=== PATIENT | female | born 2000 | race Two or more races ===

== ENCOUNTER 2024-12-29 19:28 | Observation (INO) | payer OTHER, SELFPAY ==
[2024-12-29] VITALS (11 sets, daily range): BP systolic 94–120; BP diastolic 51–78; PULSE 65–87; RESP 14–19; TEMP 36.6; O2SAT 98–100; BMI 27.7
--- NOTE | ~2024-12-29 | US_ITS ---
FIRST TRIMESTER ULTRASOUND 12/29/2024 20:30 CDT Ordering provider: Barbara Archer PA-C History: . vaginal bleeding, took pills 6 days ago . Comparison: None. FINDINGS: INTRAUTERINE GESTATIONAL SAC: Not seen. YOLK SAC: Not seen. POLE: Not seen. UTERUS: The uterus measures 9.4x 4x 4.4 cm in length which is within normal limits. No myometrial mas ses. Thickened endometrium measuring 1.9 cm with internal vascularity. Minimal fluid in the cervix. FREE FLUID: None. OVARIES: Normal in size with the right measuring 2.7x 1.7x 2.7 cm and the left measuring 3.6x 1.9x 1. 9 cm. Doppler flow is demonstrated within both ovaries. ADNEXAL MASSES: None. IMPRESSION: Thickened endometrium. No gestational sac seen. Differential include early versus missed ab ortion versus retained products. Follow-up advised. Reviewed, dictated and finalized at location A. IMPRESSION: Thickened endometrium. No gestational sac seen. Differential include early preg karina versus missed versus retained products. Follow-up advised.
[2024-12-29] MEDS: ONDANSETRON INJ 4 MG/2 ML VIAL IV PUSH ×2 (20:06→23:42)
[2024-12-29] MEDS: SODIUM CHLORIDE 0.9% IV 1,000 ML 999 ML IV CONT (20:06)
[2024-12-29 20:08] LABS: Basophils Percent Auto 0.3 % (0.2-1.2); Eosinophils Absolute Auto 0.1 K/mm3 (0-0.3); Eosinophils Percent Auto 0.6 % (0-4.4); Hematocrit 34.1 % (37.0-47.0); Hemoglobin 11.4 g/dL (12.0-15.0); Immature Granulocyte Absolute 0.03 K/mm3 (0.00-0.031); Immature Granulocyte Percent A 0.3 % (0-0.5); Lymphocytes Absolute Auto 1.59 K/mm3 (0.9-3.2); Lymphocytes Percent Auto 13.7 % (18.3-44.2); Mean Corpuscular HGB Conc 33.4 g/dl (32-36); Mean Corpuscular Hemoglobin 28.7 pg (26-34); Mean Corpuscular Volume 85.9 fl (80-100); Mean Platelet Volume 10.4 fl (7.4-10.4); Monocytes Absolute Auto 0.8 K/mm3 (0.1-0.6); Monocytes Percent Auto 6.6 % (2.6-8.5); Neutrophils Absolute Auto 9.1 K/mm3 (1.3-6.7); Neutrophils Percent Auto 78.5 % (45.5-73.1); Platelet Count Result 251 k/mm3 (150-375); Red Blood Count 3.97 M/mm3 (4.2-5.4); Red Cell Distribution Width 11.9 % (11.5-14.5); White Blood Count 11.6 K/mm3 (4.5-10.0)
--- NOTE | 2024-12-29 20:08 | PC.NURSE ---
pt reports they are unable to urinate at this time to provide a urine sample. educated pt to use call light with any urge to provide UA.
[2024-12-29 20:18] LABS: INR 1.1; Prothrombin Time 14.3 Seconds (11.1-14.7)
[2024-12-29 20:19] LABS: Alanine Aminotransferase 13 U/L (6-35); Albumin Level 4.2 g/dL (3.5-5.1); Alkaline Phosphatase 64 U/L (38-126); Anion Gap 11 mmol/L (4-12); Aspartate Amino Transferase 17 U/L (14-36); Bilirubin,Total 0.8 mg/dL (0.2-1.3); Blood Urea Nitrogen 9 mg/dL (7-17); Calcium 9.4 mg/dL (8.4-10.2); Carbon Dioxide 22 mmol/L (22-30); Chloride 102 mmol/L (98-107); Estimated CRCL calculation 159 ml/min; Estimated Glomerular Filt Rate > 60; Glucose 97 mg/dL (65-110); Partial Thromboplastin Time 26.8 Seconds (22.3-36.8); Potassium 3.9 mmol/L (3.4-5.0); Sodium 135 mmol/L (137-145)
[2024-12-29] MEDS: KETOROLAC 15 MG/ML VIAL (*BKC) IV PUSH (20:30)
--- NOTE | 2024-12-29 21:05 | ED_ITS ---
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 Patient's LMP was mid November, she was approximately 6 weeks and 6 days when she went to [facility] on 12/23 and was prescribed pills. She states she took a pill intraorally and then later the day inserted pills intravaginally. She states the following evening she began developing vaginal bleeding requiring 3 pads per day until yesterday. Yesterday her bleeding increased and has caused her to change her pad 5-6x yesterday and 5-6x today. Patient states she has passed large clots. She denies history of bleeding disorders. She is endorsing some lower abdominal cramping that is intermittent. She denies feeling dizzy or lightheaded. She is endorsing associated nausea but no vomiting. Denies fevers, vaginal discharge or concern for STDs. Patient does not have an OBGYN. <Barbara Archer PA-C - Last Filed: 12/30/24 02:40> Related Data Home medications: Home Medications ?Medication ?Instructions ?Recorded ?Confirmed ?Last Taken ?Type No Home Medications 12/29/24 12/29/24 Unknown History <Barbara Archer PA-C - Last Filed: 12/30/24 02:40> Allergies/Adverse reactions: Allergies Allergy/AdvReac Type Severity Reaction Status Date / Time No Known Allergies Allergy Verified 12/29/24 19:30 <HAILEY Garcia Last Filed: 12/30/24 02:40> Review of Systems 2 Review of Systems: All systems reviewed & are unremarkable except as noted in HPI and below <HAILEY Garcia Last Filed: 12/30/24 02:40> PMFSH Past Medical History Medical History: Medical History (Updated 12/30/24 @ 07:48 by Luisana Guevara MD) Medical <Barbara Archer PA-C - Last Filed: 12/30/24 02:40> Social History Social History: Social History Smoking status: Never smoker Alcohol intake: never Substance use: never Substance use type: does not use Do You Feel Safe in your Home?: Yes Lack of Transportation: No Lack of Food: Never True Current Housing: I Have Housing Concerned About Future Housing: No Difficulty Paying Gas/Electric Bills: No Difficulty Paying for Meds: No Currently Unemployed: No Education: High School Diploma/GED Difficulty w/ Childcare or Family Care: No Spiritual care concerns: No <Barbara Archer PA-C - Last Filed: 12/30/24 02:40> Exam 2 Narrative: GENERAL: Well-appearing, well-nourished, and in no acute distress. HEAD: Normocephalic, atraumatic. EYES: EOMI. ENT: Nares clear, no rhinorrhea or epistaxis. Mucous membranes moist. NECK: Supple. CHEST: Clear to auscultation. No respiratory distress. HEART: Regular rate and rhythm. No murmur heard. Normal peripheral pulses. ABDOMEN: Soft, nontender, nondistended, normal active bowel sounds. No rebound, guarding or rigidity. No CVA tenderness : Normal external genitalia. Mild amount of blood in vaginal vault with to quarter-size clots. Cervical os is slightly open with clot in the os that is easily removed with ring forceps. No vaginal discharge, no CMT, adnexal masses or tenderness EXTREMITIES: Normal range of motion. No edema. SKIN: Warm, dry, no rash. NEURO: No focal deficits. Alert and oriented x3 <Barbara Archer PA-C - Last Filed: 12/30/24 02:40> Course LABORATORY ASSOCIATE/PA Physician Supervision PA did inform me this patient was being admitted for post pharmacologic miscarriage management due to bleeding. I weighed in on Cytotec administration and was in general available for consultation while patient was in the emergency department but did not personally examine them and was not directly involved in their care otherwise. <Kaila Gomez MD - Last Filed: 12/30/24 13:39> Vital Signs Vital signs: Vital Signs Temperature 97.8 F 12/29/24 19:43 Pulse Rate 70 12/29/24 19:43 Respiratory Rate 14 12/29/24 19:43 Blood Pressure 120/78 12/29/24 19:43 Pulse Oximetry 100 12/29/24 19:43 Temperature 98.1 F 12/30/24 04:34 Pulse Rate 67 12/30/24 04:34 Respiratory Rate 18 12/30/24 04:34 Blood Pressure 105/64 12/30/24 04:34 Pulse Oximetry 100 12/30/24 04:34 Oxygen Delivery Room Air 12/30/24 09:00 <Barbara Archer PA-C - Last Filed: 12/30/24 02:40> Vital Signs Temperature 97.8 F 12/29/24 19:43 Pulse Rate 70 12/29/24 19:43 Respiratory Rate 14 12/29/24 19:43 Blood Pressure 120/78 12/29/24 19:43 Pulse Oximetry 100 12/29/24 19:43 Temperature 98.1 F 12/30/24 04:34 Pulse Rate 67 12/30/24 04:34 Respiratory Rate 18 12/30/24 04:34 Blood Pressure 105/64 12/30/24 04:34 Pulse Oximetry 100 12/30/24 04:34 Oxygen Delivery Room Air 12/30/24 09:00 <Kaila Gomez MD - Last Filed: 12/30/24 13:39> MDM - Female Genitourinary MDM Narrative Medical decision making narrative: 24-year-old female who is presents to the emergency department for vaginal bleeding after taking what sounds like oral mifepristone Thursday afternoon, followed by intravaginal Misoprostol Thursday night (6 days ago). Patient states since then she is happened mild bleeding and has had to change her pad 3 times a day, however since yesterday her bleeding has increased and she has passed large clots and has had to change her pad 5-6 times per day. Triage vitals are stable. Exam is significant for the above. CBC with mild leukocytosis of 11.6, hemoglobin is 11.4 with no prior for comparison. Chemistries are unremarkable. UA with 3+ ketonuria, hematuria, 1+ leuk esterase, no white blood cells or bacteria. Beta hCG level is 38,989. Rh factor is positive, RhoGAM not required. Coags are unremarkable. Pelvic ultrasound shows a thickened endometrium with no gestational sac seen. Differential includes early versus missed versus retained products. Follow-up advised. Patient updated on results. She is given IV fluids, Zofran and Toradol. Continues to have cramping. Patient did have significant bleeding after pelvic exam. I did repeat the exam and extracted several large clots with pooling blood in the vaginal vault. Given amount of bleeding, shared decision making regarding disposition. Ultimately patient would like to stay for observation. Discussed with OBGYN on-call, Dr. Guevara, who accepts admission. Advises 800mcg Cytotec which was given in ED. Maintenance fluids started with prn Toradol and Zofran. Repeat CBC in the am. Pt made NPO at midnight in case decision for D&C is made. <Barbara Archer PA-C - Last Filed: 12/30/24 02:40> Lab Data Result diagrams: 12/30/24 04:01 12/29/24 20:01 <Barbara Archer PA-C - Last Filed: 12/30/24 02:40> Labs: Lab Results 12/29/24 12/29/24 Range/Units 20:01 20:59 WBC 11.6 H (4.5-10.0) K/mm3 RBC 3.97 L (4.2-5.4) M/mm3 Hgb 11.4 L (12.0-15.0) g/dL Hct 34.1 L (37.0-47.0) % MCV 85.9 (80-100) fl MCH 28.7 (26-34) pg MCHC 33.4 (32-36) g/dl RDW 11.9 (11.5-14.5) % Plt Count 251 (150-375) k/mm3 MPV 10.4 (7.4-10.4) fl Immature Gran % (Auto) 0.3 (0-0.5) % Neut % (Auto) 78.5 H (45.5-73.1) % Lymph % (Auto) 13.7 L (18.3-44.2) % [place] % (Auto) 6.6 (2.6-8.5) % Eos % (Auto) 0.6 (0-4.4) % Baso % (Auto) 0.3 (0.2-1.2) % Lymph # (Auto) 1.59 (0.9-3.2) K/mm3 [place] # (Auto) 0.8 H (0.1-0.6) K/mm3 Eos # (Auto) 0.1 (0-0.3) K/mm3 Baso # (Auto) 0.0 (0.0-0.1) K/mm3 Abs Immat Gran (auto) 0.03 (0.00-0.031) K/mm3 Absolute Neuts (auto) 9.1 H (1.3-6.7) K/mm3 Absolute Nucleated RBC 0.000 (0.0-0.012) K/mm3 Nucleated RBC % 0.0 (0.0-0.2) % PT 14.3 (11.1-14.7) Seconds INR 1.1 APTT 26.8 (22.3-36.8) Seconds Sodium 135 L (137-145) mmol/L Potassium 3.9 (3.4-5.0) mmol/L Chloride 102 (98-107) mmol/L Carbon Dioxide 22 (22-30) mmol/L Anion Gap 11 (4-12) mmol/L BUN 9 (7-17) mg/dL Creatinine 0.44 L (0.7-1.0) mg/dL Estim Creat Clear Calc 159 ml/min Estimated GFR > 60 (59 - ) Glucose 97 (65-110) mg/dL Calcium 9.4 (8.4-10.2) mg/dL Total Bilirubin 0.8 (0.2-1.3) mg/dL AST 17 (14-36) U/L ALT 13 (6-35) U/L Alkaline Phosphatase 64 (38-126) U/L Total Protein 8.0 (6.3-8.2) g/dL Albumin 4.2 (3.5-5.1) g/dL Beta HCG, Quant 04493.00 mIU/ML Urine Color Dark yellow (Yellow) Urine Appearance Cloudy H (Clear) Urine pH 5.5 (5.0-9.0) Ur Specific [place] 1.024 (1.001-1.035) Urine Protein 2+ H (Negative) mg/dL Urine Glucose (UA) Negative (Negative) mg/dL Urine Ketones 3+ H (Negative) mg/dL Ur Blood (Man) 3+ H (Negative) Urine Nitrate Negative (Negative) Urine Bilirubin Negative (Negative) Urine Urobilinogen 1.0 (<2.0) mg/dL Add Ur Microanalysis Reviewed Leukocyte Esterase Rfl 1+ H (Negative) ALEXANDER/UL Urine RBC >100 H (0-2) /hpf Urine WBC 0-5 (0-3) /hpf Ur Squamous Epith Cells Occasional (Few) /hpf Urine Bacteria None seen /hpf Urine Casts 0-2 Blood Type B Positive Antibody Screen Negative Doses of RhIg Required 0 <Barbara Archer PA-C - Last Filed: 12/30/24 02:40> Lab Results 12/29/24 12/29/24 Range/Units 20:01 20:59 WBC 11.6 H (4.5-10.0) K/mm3 RBC 3.97 L (4.2-5.4) M/mm3 Hgb 11.4 L (12.0-15.0) g/dL Hct 34.1 L (37.0-47.0) % MCV 85.9 (80-100) fl MCH 28.7 (26-34) pg MCHC 33.4 (32-36) g/dl RDW 11.9 (11.5-14.5) % Plt Count 251 (150-375) k/mm3 MPV 10.4 (7.4-10.4) fl Immature Gran % (Auto) 0.3 (0-0.5) % Neut % (Auto) 78.5 H (45.5-73.1) % Lymph % (Auto) 13.7 L (18.3-44.2) % [place] % (Auto) 6.6 (2.6-8.5) % Eos % (Auto) 0.6 (0-4.4) % Baso % (Auto) 0.3 (0.2-1.2) % Lymph # (Auto) 1.59 (0.9-3.2) K/mm3 [place] # (Auto) 0.8 H (0.1-0.6) K/mm3 Eos # (Auto) 0.1 (0-0.3) K/mm3 Baso # (Auto) 0.0 (0.0-0.1) K/mm3 Abs Immat Gran (auto) 0.03 (0.00-0.031) K/mm3 Absolute Neuts (auto) 9.1 H (1.3-6.7) K/mm3 Absolute Nucleated RBC 0.000 (0.0-0.012) K/mm3 Nucleated RBC % 0.0 (0.0-0.2) % PT 14.3 (11.1-14.7) Seconds INR 1.1 APTT 26.8 (22.3-36.8) Seconds Sodium 135 L (137-145) mmol/L Potassium 3.9 (3.4-5.0) mmol/L Chloride 102 (98-107) mmol/L Carbon Dioxide 22 (22-30) mmol/L Anion Gap 11 (4-12) mmol/L BUN 9 (7-17) mg/dL Creatinine 0.44 L (0.7-1.0) mg/dL Estim Creat Clear Calc 159 ml/min Estimated GFR > 60 (59 - ) Glucose 97 (65-110) mg/dL Calcium 9.4 (8.4-10.2) mg/dL Total Bilirubin 0.8 (0.2-1.3) mg/dL AST 17 (14-36) U/L ALT 13 (6-35) U/L Alkaline Phosphatase 64 (38-126) U/L Total Protein 8.0 (6.3-8.2) g/dL Albumin 4.2 (3.5-5.1) g/dL Beta HCG, Quant 30478.00 mIU/ML Urine Color Dark yellow (Yellow) Urine Appearance Cloudy H (Clear) Urine pH 5.5 (5.0-9.0) Ur Specific [place] 1.024 (1.001-1.035) Urine Protein 2+ H (Negative) mg/dL Urine Glucose (UA) Negative (Negative) mg/dL Urine Ketones 3+ H (Negative) mg/dL Ur Blood (Man) 3+ H (Negative) Urine Nitrate Negative (Negative) Urine Bilirubin Negative (Negative) Urine Urobilinogen 1.0 (<2.0) mg/dL Add Ur Microanalysis Reviewed Leukocyte Esterase Rfl 1+ H (Negative) ALEXANDER/UL Urine RBC >100 H (0-2) /hpf Urine WBC 0-5 (0-3) /hpf Ur Squamous Epith Cells Occasional (Few) /hpf Urine Bacteria None seen /hpf Urine Casts 0-2 Blood Type B Positive Antibody Screen Negative Doses of RhIg Required 0 <Kaila Gomez MD - Last Filed: 12/30/24 13:39> Discharge Plan Discharge Clinical Impression: Incomplete <Barbara Archer PA-C - Last Filed: 12/30/24 02:40> Patient Disposition: Still a Patient <Barbara Archer PA-C - Last Filed: 12/30/24 02:40> Condition: Stable <Barbara Archer PA-C - Last Filed: 12/30/24 02:40>
[2024-12-29 21:17] LABS: Add Urine Microscopic? YES; Appearance Urine Cloudy (Clear); Bacteria Urine None Seen /hpf; Bilirubin Urine Negative (Negative); Blood Urine 3+ (Negative); Glucose Urine UA Negative (Negative); Ketones Urine 3+ mg/dL (Negative); Leukocyte Esterase Ur 1+ LEU/UL (Negative); Need Manual Microscopic Reviewed; Nitrate Urine Negative (Negative); Non Pathogenic Casts 0-2; Protein Urine 2+ mg/dL (Negative); RBC Urine >100 /hpf (0-2); Specific Grav Ur 1.024 (1.001-1.035); Squamous Epithelial Cell Urine Occasional /hpf (Few); WBC Urine 0-5 /hpf (0-3); pH Urine 5.5 (5.0-9.0)
[2024-12-29 21:19] LABS: Color Urine Dark Yellow (Yellow)
--- NOTE | 2024-12-29 22:13 | PC.NURSE ---
after SEBASTIEN Moscoso did pelvic exam on patient with this RN in the room, the patient stood to put underwear back on and began dripping bright red blood down leg and onto the floor. pt denied any dizziness or lightheadedness. roughly 20 minutes later Becky went to do another pelvic exam where large clots were extracted.
--- NOTE | 2024-12-29 22:27 | PC.NURSE ---
care and report given to PIA Sin. all questions answered.
[2024-12-29] MEDS: miSOPROStol 200 MCG TABLET 800 MCG PO (22:39)
--- NOTE | 2024-12-29 23:12 | ADMGEN ---
This patient, Cristina Page, was admitted to 2 Medical Room 242-. Patient/family oriented to hospital policies and general routines including ID bracelet, bed and alarms, visiting hours, pain management, procedures, bathroom and other care routines, personal items, smoking policy, room service/diet, and visiting hours. Information on how to activate the Rapid Response Team has been discussed. Patient/Family are encouraged to report perceived risks to care and to ask questions if they do not understand what they are told or what they should do.
[2024-12-29] MEDS: SODIUM CHLORIDE 0.9% IV 1,000 ML 100 ML IV CONT (23:18)
[2024-12-30] MEDS: KETOROLAC 30 MG/ML VIAL (*BKC) IV PUSH (02:00)
[2024-12-30 04:34] VITALS: BP 105/64; PULSE 67; RESP 18; TEMP 36.7; O2SAT 100
[2024-12-30 04:38] LABS: Basophils Percent Auto 0.4 % (0.2-1.2); Eosinophils Absolute Auto 0.1 K/mm3 (0-0.3); Eosinophils Percent Auto 0.9 % (0-4.4); Hematocrit 28.9 % (37.0-47.0); Hemoglobin 9.9 g/dL (12.0-15.0); Immature Granulocyte Absolute 0.05 K/mm3 (0.00-0.031); Immature Granulocyte Percent A 0.6 % (0-0.5); Lymphocytes Absolute Auto 1.86 K/mm3 (0.9-3.2); Lymphocytes Percent Auto 20.5 % (18.3-44.2); Mean Corpuscular HGB Conc 34.3 g/dl (32-36); Mean Corpuscular Hemoglobin 29.3 pg (26-34); Mean Corpuscular Volume 85.5 fl (80-100); Mean Platelet Volume 10.9 fl (7.4-10.4); Monocytes Absolute Auto 0.7 K/mm3 (0.1-0.6); Monocytes Percent Auto 7.9 % (2.6-8.5); Neutrophils Absolute Auto 6.3 K/mm3 (1.3-6.7); Neutrophils Percent Auto 69.7 % (45.5-73.1); Platelet Count Result 231 k/mm3 (150-375); Red Blood Count 3.38 M/mm3 (4.2-5.4); White Blood Count 9.1 K/mm3 (4.5-10.0)
--- NOTE | 2024-12-30 07:47 | PM.IMHP ---
H&P: HPI History of Present Illness Date/Time: 12/30/24 07:47 Chief Complaint: Vaginal bleeding with medical Narrative: 24-year-old 1 status post medical who presented through the emergency room with vaginal bleeding and cramping. Patient was admitted overnight for observation and bleeding has decreased to approximately 1 pad every 3 to 4 hours. Patient states the cramping has resolved. She feels much better this morning. [facility] Past Medical History Medical History (Updated 12/30/24 @ 07:48 by Luisana Guevara MD) Medical Social History Social History Smoking status: Never smoker Alcohol intake: never Substance use: never Substance use type: does not use Do You Feel Safe in your Home?: Yes Lack of Transportation: No Lack of Food: Never True Current Housing: I Have Housing Concerned About Future Housing: No Difficulty Paying Gas/Electric Bills: No Difficulty Paying for Meds: No Currently Unemployed: No Education: High School Diploma/GED Difficulty w/ Childcare or Family Care: No Spiritual care concerns: No Meds Home Medications and Allergies Home Medications ?Medication ?Instructions ?Recorded ?Confirmed ?Type No Home Medications 12/29/24 12/29/24 History Allergies Allergy/AdvReac Type Severity Reaction Status Date / Time No Known Allergies Allergy Verified 12/29/24 19:30 Vital Signs Vital Signs - 24 hr 12/29/24 19:43 12/29/24 19:45 12/29/24 20:17 Temperature 97.8 F Pulse Rate 70 78 75 Respiratory Rate 14 14 15 Blood Pressure 120/78 120/78 Pulse Oximetry 100 98 100 Oxygen Delivery 12/29/24 20:33 12/29/24 20:45 12/29/24 21:02 Temperature Pulse Rate 65 73 66 Respiratory Rate 16 19 19 Blood Pressure 116/77 115/76 109/65 Pulse Oximetry 100 100 100 Oxygen Delivery 12/29/24 21:48 12/29/24 22:16 12/29/24 22:17 Temperature Pulse Rate 75 65 87 Respiratory Rate 15 Blood Pressure 102/67 110/76 Pulse Oximetry 100 Oxygen Delivery 12/29/24 22:19 12/29/24 23:12 12/30/24 01:39 Temperature 97.9 F Pulse Rate 86 83 Respiratory Rate 17 Blood Pressure 94/73 L 98/51 L Pulse Oximetry 99 Oxygen Delivery Room Air 12/30/24 04:34 Temperature 98.1 F Pulse Rate 67 Respiratory Rate 18 Blood Pressure 105/64 Pulse Oximetry 100 Oxygen Delivery Exam Const: General: comfortable and no acute distress Nutritional Appearance: average body habitus Resp: Effort & Inspection: normal respiratory effort GI: Inspection: normal to inspection GI Palp: No abdominal tenderness : General: Yes other (Pelvic as performed in the ER. Pad moderate amount of blood on for 3hours) H&P: Results Labs Labs: Short CBC 12/29/24 12/30/24 Range/Units 20:01 04:01 WBC 11.6 H 9.1 (4.5-10.0) K/mm3 Hgb 11.4 L 9.9 L (12.0-15.0) g/dL Hct 34.1 L 28.9 L (37.0-47.0) % Plt Count 251 231 (150-375) k/mm3 BMP 12/29/24 20:01 Sodium 135 L Potassium 3.9 Chloride 102 Carbon Dioxide 22 BUN 9 Creatinine 0.44 L Glucose 97 Calcium 9.4 Liver Function 12/29/24 Range/Units 20:01 Total Bilirubin 0.8 (0.2-1.3) mg/dL AST 17 (14-36) U/L ALT 13 (6-35) U/L Alkaline Phosphatase 64 (38-126) U/L Albumin 4.2 (3.5-5.1) g/dL Urine 12/29/24 Range/Units 20:59 Urine Color Dark yellow (Yellow) Urine Appearance Cloudy H (Clear) Urine pH 5.5 (5.0-9.0) Ur Specific [place] 1.024 (1.001-1.035) Urine Protein 2+ H (Negative) mg/dL Urine Glucose (UA) Negative (Negative) mg/dL Assessment and Plan Assessment and plan (1) Medical : Code(s): Z33.2 - Encounter for elective termination of Status: Acute Assessment and Plan: Status post medical . Bleeding has reduced to normal. She did receive 1 additional dose of Cytotec on admission. Patient is comfortable going home. She will take iron twice a day for 6 weeks and follow-up in the office.
--- NOTE | 2024-12-30 07:50 | PM.DS ---
DS: Admitting Diagnosis Discharge Date 12/30/24 Admitting Diagnosis Medical DS: Discharge Diagnosis Discharge Diagnosis (1) Medical : Code(s): Z33.2 - Encounter for elective termination of Status: Acute DS: Summary Hospital Course Hospital Course: Patient admitted through the emergency room for vaginal bleeding secondary to medical . Patient given Cytotec x1 in the emergency room. Bleeding ceased to be heavy overnight and patient is discharged home Status at Discharge Functional status at discharge: independent ambulation Overall status at discharge: patient is progressing back to baseline Time Spent with Patient Time attestation: Total time spent providing and/or coordinating discharge services: DS: Data Data Completed and Pending Labs on day of discharge: Labs from last 24 hours 12/30/24 12/29/24 12/29/24 04:01 20:59 20:01 WBC 9.1 11.6 H RBC 3.38 L 3.97 L Hgb 9.9 L 11.4 L Hct 28.9 L 34.1 L MCV 85.5 85.9 MCH 29.3 28.7 MCHC 34.3 33.4 RDW 12.0 11.9 Plt Count 231 251 MPV 10.9 H 10.4 Immature Gran % (Auto) 0.6 H 0.3 Neut % (Auto) 69.7 78.5 H Lymph % (Auto) 20.5 13.7 L [place] % (Auto) 7.9 6.6 Eos % (Auto) 0.9 0.6 Baso % (Auto) 0.4 0.3 Lymph # (Auto) 1.86 1.59 [place] # (Auto) 0.7 H 0.8 H Eos # (Auto) 0.1 0.1 Baso # (Auto) 0.0 0.0 Abs Immat Gran (auto) 0.05 H 0.03 Absolute Neuts (auto) 6.3 9.1 H Absolute Nucleated RBC 0.000 0.000 Nucleated RBC % 0.0 0.0 PT 14.3 INR 1.1 APTT 26.8 Sodium 135 L Potassium 3.9 Chloride 102 Carbon Dioxide 22 Anion Gap 11 BUN 9 Creatinine 0.44 L Estim Creat Clear Calc 159 Estimated GFR > 60 Glucose 97 Calcium 9.4 Total Bilirubin 0.8 AST 17 ALT 13 Alkaline Phosphatase 64 Total Protein 8.0 Albumin 4.2 Beta HCG, Quant 04153.00 Urine Color Dark yellow Urine Appearance Cloudy H Urine pH 5.5 Ur Specific [place] 1.024 Urine Protein 2+ H Urine Glucose (UA) Negative Urine Ketones 3+ H Ur Blood (Man) 3+ H Urine Nitrate Negative Urine Bilirubin Negative Urine Urobilinogen 1.0 Add Ur Microanalysis Reviewed Leukocyte Esterase Rfl 1+ H Urine RBC >100 H Urine WBC 0-5 Ur Squamous Epith Cells Occasional Urine Bacteria None seen Urine Casts 0-2 Blood Type B Positive Antibody Screen Negative Doses of RhIg Required 0 Discharge Plan Discharge Attending physician on discharge: Luisana Guevara Discharging Clinician: Luisana Guevara Anticipated Discharge Date/Time: 12/30/24 09:00 Patient Disposition: Home, Self-Care Activity: may shower and pelvic rest Diet: regular Patient Instructions: Antibiotic Form Patient Language: Mohawk Stand Alone Forms: General Discharge Information Follow-up/Referrals: Luisana Guevara MD [Physician] - Call for Appointment (Two weeks) Discharge Medications: New ferrous sulfate [Feosol] 325 mg (65 mg iron) tablet 325 mg PO BID Qty: 60 1RF No Action No Home Medications Date of admission: 12/29/24 22:26 Primary Care Provider: UNKNOWN,DOCTOR Admitting Provider: Luisana Guevara Attending physician on admission: Luisana Guevara Condition: Stable
== END 2024-12-30 09:10 | disposition home or self-care (01) ==
LOC: ANHED 22:26 → ANH2MED 22:50
PROVIDERS: Admitting Provider Obstetrics & Gynecology Gynecology; Emergency Provider Physician Assistant; Visit Provider Obstetrics & Gynecology Gynecology
DX: Z33.2 Encounter for elective termination of pregnancy (principal); N93.8 Other specified abnormal uterine and vaginal bleeding
CPT/HCPCS: 36415; 76801; 80053; 81001; 84702; 85025; 85461; 85610; 85730; 86850; 86900; 86901; 87086; 96361; 96374; 96375; 96376; 99285; A9270; G0378; J1885; J2405; J7030

== ENCOUNTER 2024-12-30 16:04 | Observation (INO) | payer OTHER, SELFPAY ==
[2024-12-30] VITALS (15 sets, daily range): BP systolic 112–123; BP diastolic 61–75; PULSE 64–89; RESP 17–18; TEMP 36.5–36.6; O2SAT 97–100
[2024-12-30] MEDS: SODIUM CHLORIDE 0.9% IV 1,000 ML 999 ML IV CONT (16:56)
[2024-12-30] MEDS: ONDANSETRON INJ 4 MG/2 ML VIAL IV PUSH ×2 (16:57→22:33)
[2024-12-30] MEDS: MORPHINE SULFATE (*CRX) 4 MG/ML INJ IV PUSH (16:57)
[2024-12-30 17:08] LABS: Basophils Percent Auto 0.3 % (0.2-1.2); Eosinophils Absolute Auto 0.1 K/mm3 (0-0.3); Eosinophils Percent Auto 0.8 % (0-4.4); Hematocrit 29.9 % (37.0-47.0); Hemoglobin 9.8 g/dL (12.0-15.0); Immature Granulocyte Absolute 0.05 K/mm3 (0.00-0.031); Immature Granulocyte Percent A 0.5 % (0-0.5); Lymphocytes Absolute Auto 1.74 K/mm3 (0.9-3.2); Lymphocytes Percent Auto 18.1 % (18.3-44.2); Mean Corpuscular HGB Conc 32.8 g/dl (32-36); Mean Corpuscular Hemoglobin 28.5 pg (26-34); Mean Corpuscular Volume 86.9 fl (80-100); Mean Platelet Volume 10.4 fl (7.4-10.4); Monocytes Absolute Auto 0.8 K/mm3 (0.1-0.6); Neutrophils Absolute Auto 6.9 K/mm3 (1.3-6.7); Neutrophils Percent Auto 72.3 % (45.5-73.1); Platelet Count Result 232 k/mm3 (150-375); Red Blood Count 3.44 M/mm3 (4.2-5.4); Red Cell Distribution Width 12.1 % (11.5-14.5); White Blood Count 9.6 K/mm3 (4.5-10.0)
[2024-12-30 17:20] LABS: Anion Gap 10 mmol/L (4-12); Blood Urea Nitrogen 6 mg/dL (7-17); Calcium 9.1 mg/dL (8.4-10.2); Carbon Dioxide 23 mmol/L (22-30); Chloride 103 mmol/L (98-107); Estimated Glomerular Filt Rate > 60; Glucose 100 mg/dL (65-110); Potassium 3.5 mmol/L (3.4-5.0); Sodium 136 mmol/L (137-145)
[2024-12-30] MEDS: HYDROmorphone HCL INJ (*CRX) 1 MG/ML SYR IV PUSH (17:21)
[2024-12-30] MEDS: KETOROLAC 30 MG/ML VIAL (*BKC) IV PUSH ×2 (18:19→22:50)
[2024-12-30] MEDS: LACTATED RINGERS 1,000 ML 150 ML IV CONT (18:29)
--- NOTE | 2024-12-30 18:38 | ED_ITS ---
HPI - Female Genitourinary General Chief complaint: Vaginal Bleeding <Landon Angeles MD - Last Filed: 12/30/24 18:45> Stated complaint: Pelvic pain <Landon Angeles MD - Last Filed: 12/30/24 18:45> Time Seen by Provider: 12/30/24 16:39 <Landon Angeles MD - Last Filed: 12/30/24 18:45> Source: patient and family <Landon Angeles MD - Last Filed: 12/30/24 18:45> Mode of arrival: ambulatory <Landon Angeles MD - Last Filed: 12/30/24 18:45> Limitations: no limitations <Landon Angeles MD - Last Filed: 12/30/24 18:45> History of Present Illness HPI Narrative: 24-year-old 1 para 0 A1 here was a complains of severe lower abdominal pain associated with vaginal bleeding. Patient had medical termination of at [facility] was seen last night here for the same and was discharged morning from the hospital this morning. Patient states the pain started few hours ago associated with vaginal bleeding. She denies being lightheaded or dizzy. <Landon Angeles MD - Last Filed: 12/30/24 18:45> MD elicited complaint: vaginal bleeding <Landon Angeles MD - Last Filed: 12/30/24 18:45> Onset (ago): day(s) (1) <Landon Angeles MD - Last Filed: 12/30/24 18:45> Location of symptoms: suprapubic and pelvis <Landon Angeles MD - Last Filed: 12/30/24 18:45> Severity: moderate <Landon Angeles MD - Last Filed: 12/30/24 18:45> Quality of pain: cramping <Landon Angeles MD - Last Filed: 12/30/24 18:45> Consistency: constant <Landon Angeles MD - Last Filed: 12/30/24 18:45> Vaginal discharge: none <Landon Angeles MD - Last Filed: 12/30/24 18:45> Vaginal bleeding: moderate <Landon Angeles MD - Last Filed: 12/30/24 18:45> Exacerbating factors: none <Landon Angeles MD - Last Filed: 12/30/24 18:45> Relieving factors: none <Landon Angeles MD - Last Filed: 12/30/24 18:45> Associated symptoms: abdominal pain <Landon Angeles MD - Last Filed: 12/30/24 18:45> Treatment prior to arrival: none <Landon Angeles MD - Last Filed: 12/30/24 18:45> Related Data Home medications: Home Medications ?Medication ?Instructions ?Recorded ?Confirmed ?Last Taken ?Type No Home Medications 12/29/24 12/29/24 Unknown History <Landon Angeles MD - Last Filed: 12/30/24 18:45> Allergies/Adverse reactions: Allergies Allergy/AdvReac Type Severity Reaction Status Date / Time No Known Allergies Allergy Verified 12/30/24 16:25 <Landon Angeles MD - Last Filed: 12/30/24 18:45> Review of Systems 2 Review of Systems: All systems reviewed & are unremarkable except as noted in HPI and below <Landon Angeles MD - Last Filed: 12/30/24 18:45> Constitutional: Constitutional: Reports no additional constitutional complaints <Landon Angeles MD - Last Filed: 12/30/24 18:45> Eyes: Eyes: Reports no additional eye complaints <Landon Angeles MD - Last Filed: 12/30/24 18:45> ENT: Reports system reviewed and no additional complaints, except as documented <Landon Angeles MD - Last Filed: 12/30/24 18:45> Cardiovascular: Cardiovascular: Reports no additional cardiovascular complaints <Landon Angeles MD - Last Filed: 12/30/24 18:45> Respiratory: Respiratory: Reports no additional respiratory complaints < Landon Angeles MD - Last Filed: 12/30/24 18:45> Gastrointestinal: Gastrointestinal: Reports as per HPI <Landon Angeles MD - Last Filed: 12/30/24 18:45> Genitourinary: Genitourinary: Reports as per HPI <Landon Angeles MD - Last Filed: 12/30/24 18:45> Musculoskeletal: Musculoskeletal: Reports no additional musculoskeletal complaints <Landon Angeles MD - Last Filed: 12/30/24 18:45> Integumentary/Breasts: Skin/Breast: Reports system reviewed and no additional complaints, except as docu <Landon Angeles MD - Last Filed: 12/30/24 18:45> Neurologic: Reports system reviewed and no additional complaints, except as documented <Landon Angeles MD - Last Filed: 12/30/24 18:45> PMFSH Past Medical History Medical History: Medical History Medical <Landon Angeles MD - Last Filed: 12/30/24 18:45> Social History Social History: Social History Smoking status: Never smoker Alcohol intake: never Substance use: never Substance use type: does not use Do You Feel Safe in your Home?: Yes Lack of Transportation: No Lack of Food: Never True Current Housing: I Have Housing Concerned About Future Housing: No Difficulty Paying Gas/Electric Bills: No Difficulty Paying for Meds: No Currently Unemployed: No Education: High School Diploma/GED Difficulty w/ Childcare or Family Care: No Spiritual care concerns: No <Landon Angeles MD - Last Filed: 12/30/24 18:45> Exam 2 Narrative: GENERAL: Well-appearing, well-nourished, moderate distress secondary to pain HEAD: Normocephalic, atraumatic. EYES: PERRLA and EOMI. NECK: Supple. CHEST: Clear to auscultation. No respiratory distress. HEART: Regular rate and rhythm. No murmur heard. Normal peripheral pulses. ABDOMEN: Soft, nontender, nondistended, normal active bowel sounds. normal external genitalia few blood clots noted in the vaginal vault EXTREMITIES: Normal range of motion. No edema. SKIN: Warm, dry, no rash. NEURO: No focal deficits. Alert and oriented x3. PSYCH: Normal mood and affect. <Landon Angeles MD - Last Filed: 12/30/24 18:45> Course Course Emergency Course: Patient continues to be in pain I did give her morphine which helped for very shortly of time r did give her IV hydromorphone which did not help her with pain he I did a pelvic on her head showed very scant bleeding. Discussed with alondra Taveras in the ER till pain is better ,can be discharged home once pain improves <Landon Angeles MD - Last Filed: 12/30/24 18:45> Patient continues to be in pain I did give her morphine which helped for very shortly of time r did give her IV hydromorphone which did not help her with pain he I did a pelvic on her head showed very scant bleeding. Discussed with alondra Taveras in the ER till pain is better ,can be discharged home once pain improves SUBHA: Patient signed out to me pending an observation. For improved pain. During the observation. She continued to have profuse vaginal bleeding. Performed a pelvic exam section large amount of blood and clots out of the vaginal vault. There is a clot stuck in the cervical os that I was unable to remove with ring forceps. Clean pad was placed on the patient which she soaks through that approximately [address] Gorman was contacted. He recommended 1000mcg cytotec rectally which has been orderd. Repeat H&H was obtained which showed a 1.5 point drop in hemoglobin from presentation. DIC panel ordered and a type and screen was obtained. 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 < Krystian Pena MD - Last Filed: 12/30/24 22:44> Vital Signs Vital signs: Vital Signs Temperature 97.7 F 12/30/24 16:19 Pulse Rate 89 12/30/24 16:19 Respiratory Rate 18 12/30/24 16:19 Blood Pressure 116/75 12/30/24 16:19 Pulse Oximetry 100 12/30/24 16:19 Temperature 97.7 F 12/30/24 16:19 Pulse Rate 73 12/30/24 22:00 Respiratory Rate 17 12/30/24 22:00 Blood Pressure 114/61 12/30/24 22:00 Pulse Oximetry 100 12/30/24 22:00 <Landon Angeles MD - Last Filed: 12/30/24 18:45> Vital Signs Temperature 97.7 F 12/30/24 16:19 Pulse Rate 89 12/30/24 16:19 Respiratory Rate 18 12/30/24 16:19 Blood Pressure 116/75 12/30/24 16:19 Pulse Oximetry 100 12/30/24 16:19 Temperature 97.7 F 12/30/24 16:19 Pulse Rate 73 12/30/24 22:00 Respiratory Rate 17 12/30/24 22:00 Blood Pressure 114/61 12/30/24 22:00 Pulse Oximetry 100 12/30/24 22:00 <Krystian Pena MD - Last Filed: 12/30/24 22:44> MDM - Female Genitourinary Lab Data Result diagrams: 12/30/24 22:27 12/30/24 17:00 <Landon Angeles MD - Last Filed: 12/30/24 18:45> Labs: Lab Results 12/30/24 12/30/24 Range/Units 17:00 22:27 WBC 9.6 (4.5-10.0) K/mm3 RBC 3.44 L (4.2-5.4) M/mm3 Hgb 9.8 L 8.3 L (12.0-15.0) g/dL Hct 29.9 L 24.6 L (37.0-47.0) % MCV 86.9 (80-100) fl MCH 28.5 (26-34) pg MCHC 32.8 (32-36) g/dl RDW 12.1 (11.5-14.5) % Plt Count 232 (150-375) k/mm3 MPV 10.4 (7.4-10.4) fl Immature Gran % (Auto) 0.5 (0-0.5) % Neut % (Auto) 72.3 (45.5-73.1) % Lymph % (Auto) 18.1 L (18.3-44.2) % [place] % (Auto) 8.0 (2.6-8.5) % Eos % (Auto) 0.8 (0-4.4) % Baso % (Auto) 0.3 (0.2-1.2) % Lymph # (Auto) 1.74 (0.9-3.2) K/mm3 [place] # (Auto) 0.8 H (0.1-0.6) K/mm3 Eos # (Auto) 0.1 (0-0.3) K/mm3 Baso # (Auto) 0.0 (0.0-0.1) K/mm3 Abs Immat Gran (auto) 0.05 H (0.00-0.031) K/mm3 Absolute Neuts (auto) 6.9 H (1.3-6.7) K/mm3 Absolute Nucleated RBC 0.000 (0.0-0.012) K/mm3 Nucleated RBC % 0.0 (0.0-0.2) % Sodium 136 L (137-145) mmol/L Potassium 3.5 (3.4-5.0) mmol/L Chloride 103 (98-107) mmol/L Carbon Dioxide 23 (22-30) mmol/L Anion Gap 10 (4-12) mmol/L BUN 6 L (7-17) mg/dL Creatinine 0.52 L (0.7-1.0) mg/dL Estim Creat Clear Calc Not Reportable Estimated GFR > 60 (59 - ) Glucose 100 (65-110) mg/dL Calcium 9.1 (8.4-10.2) mg/dL <Landon Angeles MD - Last Filed: 12/30/24 18:45> Lab Results 12/30/24 12/30/24 Range/Units 17:00 22:27 WBC 9.6 (4.5-10.0) K/mm3 RBC 3.44 L (4.2-5.4) M/mm3 Hgb 9.8 L 8.3 L (12.0-15.0) g/dL Hct 29.9 L 24.6 L (37.0-47.0) % MCV 86.9 (80-100) fl MCH 28.5 (26-34) pg MCHC 32.8 (32-36) g/dl RDW 12.1 (11.5-14.5) % Plt Count 232 (150-375) k/mm3 MPV 10.4 (7.4-10.4) fl Immature Gran % (Auto) 0.5 (0-0.5) % Neut % (Auto) 72.3 (45.5-73.1) % Lymph % (Auto) 18.1 L (18.3-44.2) % [place] % (Auto) 8.0 (2.6-8.5) % Eos % (Auto) 0.8 (0-4.4) % Baso % (Auto) 0.3 (0.2-1.2) % Lymph # (Auto) 1.74 (0.9-3.2) K/mm3 [place] # (Auto) 0.8 H (0.1-0.6) K/mm3 Eos # (Auto) 0.1 (0-0.3) K/mm3 Baso # (Auto) 0.0 (0.0-0.1) K/mm3 Abs Immat Gran (auto) 0.05 H (0.00-0.031) K/mm3 Absolute Neuts (auto) 6.9 H (1.3-6.7) K/mm3 Absolute Nucleated RBC 0.000 (0.0-0.012) K/mm3 Nucleated RBC % 0.0 (0.0-0.2) % Sodium 136 L (137-145) mmol/L Potassium 3.5 (3.4-5.0) mmol/L Chloride 103 (98-107) mmol/L Carbon Dioxide 23 (22-30) mmol/L Anion Gap 10 (4-12) mmol/L BUN 6 L (7-17) mg/dL Creatinine 0.52 L (0.7-1.0) mg/dL Estim Creat Clear Calc Not Reportable Estimated GFR > 60 (59 - ) Glucose 100 (65-110) mg/dL Calcium 9.1 (8.4-10.2) mg/dL <Krystian Pena MD - Last Filed: 12/30/24 22:44> Discharge Plan Discharge Clinical Impression: Vaginal bleeding, Medical <Landon Angeles MD - Last Filed: 12/30/24 18:45> Patient Disposition: Still a Patient <Landon Angeles MD - Last Filed: 12/30/24 18:45> Condition: Guarded Prognosis <Landon Angeles MD - Last Filed: 12/30/24 18:45> Patient Language: Afghan <Landon Angeles MD - Last Filed: 12/30/24 18:45> Prescriptions: No Action No Home Medications ferrous sulfate [Feosol] 325 mg (65 mg iron) tablet 325 mg PO BID Qty: 60 1RF <Landon Angeles MD - Last Filed: 12/30/24 18:45> Follow-up/Referrals: UNKNOWN,DOCTOR [Non-Staff] - <Landon Angeles MD - Last Filed: 12/30/24 18:45>
--- NOTE | 2024-12-30 19:33 | PC.NURSE ---
Report received from PIA Carmona. Assumed care of patient at this time.
--- NOTE | 2024-12-30 21:32 | PC.NURSE ---
ERP performed pelvic exam after patient called out stating she is bleeding again. Patient passing large clots. 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
--- NOTE | 2024-12-30 21:54 | PC.NURSE ---
1514 This RN placed pad on patient with mesh underwear per EDWIGE ERP . Patient instructed to notify RN immediately if or when pad becomes saturated. Patient requesting pain medication. Patient verbalized understanding. ERP notified of patients request for pain meds.
--- NOTE | 2024-12-30 22:12 | PC.NURSE ---
[id number] Patient calls this RN into room and states she feels her pad is wet. This RN checked patient, pad was saturated with large clot on pad. ERP notified that 20 minutes since pad was placed that patient has saturated the pad with a large clot.
--- NOTE | 2024-12-30 22:18 | PC.NURSE ---
ERP gave VORB to give patient 4mg zofran IVP for nausea and 0.5mg Dilaudid IVP for pain. Orders placed.
[2024-12-30] MEDS: HYDROmorphone HCL INJ (*CRX) 1 MG/ML SYR 0.5 MG IV PUSH (22:33)
[2024-12-30 22:35] LABS: Hematocrit 24.6 % (37.0-47.0); Hemoglobin 8.3 g/dL (12.0-15.0)
--- NOTE | 2024-12-30 22:39 | PC.NURSE ---
2237 Patients pad changed. Patient had 2nd pad saturated, changed and patient cleaned up. Patient informed of plan of care and plan to be admitted. Patient verbalized understanding.
[2024-12-30] MEDS: LACTATED RINGERS 1,000 ML 125 ML IV CONT (22:51)
[2024-12-30 23:02] LABS: Hematocrit 23.1 % (37.0-47.0); Hemoglobin 7.9 g/dL (12.0-15.0); Mean Corpuscular HGB Conc 34.2 g/dl (32-36); Mean Corpuscular Hemoglobin 29.4 pg (26-34); Mean Corpuscular Volume 85.9 fl (80-100); Mean Platelet Volume 10.6 fl (7.4-10.4); Platelet Count Result 218 k/mm3 (150-375); Red Blood Count 2.69 M/mm3 (4.2-5.4); Red Cell Distribution Width 12.2 % (11.5-14.5); White Blood Count 6.1 K/mm3 (4.5-10.0)
[2024-12-30] MEDS: miSOPROStol 200 MCG TABLET 1000 MCG RECTAL (23:04)
[2024-12-30 23:11] LABS: Magnesium 1.2 mg/dL (1.6-2.3)
[2024-12-30 23:14] LABS: INR 1.1; Prothrombin Time 15.1 Seconds (11.1-14.7)
[2024-12-30 23:15] LABS: Fibrinogen 332 mg/dl (215-510); Partial Thromboplastin Time 24.4 Seconds (22.3-36.8)
[2024-12-30 23:18] LABS: D Dimer 0.47 ug/mL (<0.48)
--- NOTE | 2024-12-30 23:26 | PC.NURSE ---
2326- [place] pad changed and new pad applied. QBL found to be 5cc's at this time. RN educated pt and significant other that pt is to call out when she needs to use the bedside commode or if she feels that bleeding increases. pt and significant other verbalize understanding.
[2024-12-31] VITALS (112 sets, daily range): BP systolic 90–139; BP diastolic 55–71; PULSE 61–128; RESP 14–22; TEMP 36.4–37.2; O2SAT 92–100
--- NOTE | 2024-12-31 00:10 | OBADM ---
This patient, Cristina Page, admitted to the OB room Labor/Delivery/Recovery 110 for observation. Patient/family oriented to hospital policies and general routines including ID bracelet, bed and alarms, visiting hours, pain management, procedures, bathroom and other care routines, personal items, smoking policy, room service/diet, and visiting hours. Patient/Family are encouraged to report perceived risks to care and to ask questions if they do not understand what they are told or what they should do.
--- NOTE | 2024-12-31 00:15 | PC.NURSE ---
2348- Dr. Yadiel wong [phone]- responded to page. RN reported pts arrival to unit from ER. RN reported pts current QBL of 5cc's since arrival to unit. RN reported pts unresolved pain and findings of head to toe assessment. Orders received for pain medication and sleep aid.
[2024-12-31] MEDS: fentaNYL CITRATE INJ (*CRX) 100 MCG/2 ML VIAL 50 MCG IV PUSH ×3 (00:21→06:54)
[2024-12-31] MEDS: ZOLPIDEM TARTRATE (*CRX) 2.5 MG TABLET PO (00:23)
--- NOTE | 2024-12-31 01:17 | PC.NURSE ---
0117- Pt called out requesting nurse's presence. Upon entry pt stated I am bleeding. Small stringy blood clots noted on pad. Pt pad weighed and changed.
[2024-12-31] MEDS: MORPHINE SULFATE (*CRX) 2 MG/ML INJ IV PUSH (03:04)
[2024-12-31 05:58] LABS: Hematocrit 20.7 % (37.0-47.0); Hemoglobin 6.9 g/dL (12.0-15.0)
--- NOTE | 2024-12-31 06:15 | PC.NURSE ---
MD responded to page. RN reported critical hgb and hct levels. Orders received to administer 1 unit of blood.
--- NOTE | 2024-12-31 07:25 | PC.NURSE ---
Pt transported to Pre-op via stretcher.
[2024-12-31] MEDS: LACTATED RINGERS 1,000 ML 30 ML IV CONT (07:30)
--- NOTE | 2024-12-31 07:33 | P.PNAN_ITS ---
Anes - Initial Pre Proc Eval Procedure: Operation Date: 12/31/24 07:30 Proposed Procedures p D&C Suction and Sharp(Not Applicable) - Xavier Cotto MD Date/Time: 12/31/24 07:33 Surgeon: Xavier Cotto MD Pre Op Diagnosis: Vaginal Bleeding Patient Data Age: 24 Gender: F Height: 1.6 m Weight: 77 kg Last Vital Signs Temp 36.9 C 12/31/24 03:03 Pulse 75 12/31/24 07:01 Resp 20 12/31/24 03:03 BP 139/69 12/31/24 07:01 Pulse Ox 99 12/31/24 07:13 O2 Del Method Room Air 12/31/24 00:10 Allergies Allergy/AdvReac Type Severity Reaction Status Date / Time No Known Allergies Allergy Verified 12/31/24 00:22 Home Medications ?Medication ?Instructions ?Recorded ?Confirmed ?Type No Home Medications 12/29/24 12/31/24 History ferrous sulfate 325 mg (65 mg 325 mg PO BID #60 tabs 12/30/24 Rx iron) tablet (Feosol) Laboratory Tests 12/30/24 12/30/24 12/30/24 17:00 22:27 22:57 WBC 9.6 K/mm3 6.1 K/mm3 (4.5-10.0) (4.5-10.0) RBC 3.44 L M/mm3 2.69 L M/mm3 (4.2-5.4) (4.2-5.4) Hgb 9.8 L g/dL 8.3 L g/dL 7.9 L g/dL (12.0-15.0) (12.0-15.0) (12.0-15.0) Hct 29.9 L % 24.6 L % 23.1 L % (37.0-47.0) (37.0-47.0) (37.0-47.0) MCV 86.9 fl 85.9 fl (80-100) (80-100) MCH 28.5 pg 29.4 pg (26-34) (26-34) MCHC 32.8 g/dl 34.2 g/dl (32-36) (32-36) RDW 12.1 % 12.2 % (11.5-14.5) (11.5-14.5) Plt Count 232 k/mm3 218 k/mm3 (150-375) (150-375) MPV 10.4 fl 10.6 H fl (7.4-10.4) (7.4-10.4) Immature Gran % (Auto) 0.5 % (0-0.5) Neut % (Auto) 72.3 % (45.5-73.1) Lymph % (Auto) 18.1 L % (18.3-44.2) [place] % (Auto) 8.0 % (2.6-8.5) Eos % (Auto) 0.8 % (0-4.4) Baso % (Auto) 0.3 % (0.2-1.2) Lymph # (Auto) 1.74 K/mm3 (0.9-3.2) [place] # (Auto) 0.8 H K/mm3 (0.1-0.6) Eos # (Auto) 0.1 K/mm3 (0-0.3) Baso # (Auto) 0.0 K/mm3 (0.0-0.1) Abs Immat Gran (auto) 0.05 H K/mm3 (0.00-0.031) Absolute Neuts (auto) 6.9 H K/mm3 (1.3-6.7) Absolute Nucleated RBC 0.000 K/mm3 (0.0-0.012) Nucleated RBC % 0.0 % (0.0-0.2) PT 15.1 H Seconds (11.1-14.7) INR 1.1 APTT 24.4 Seconds (22.3-36.8) Fibrinogen 332 mg/dl (215-510) D-Dimer 0.47 ug/mL (<0.48) Sodium 136 L mmol/L (137-145) Potassium 3.5 mmol/L (3.4-5.0) Chloride 103 mmol/L (98-107) Carbon Dioxide 23 mmol/L (22-30) Anion Gap 10 mmol/L (4-12) BUN 6 L mg/dL (7-17) Creatinine 0.52 L mg/dL (0.7-1.0) Estim Creat Clear Calc Not Reportable Estimated GFR > 60 (59 - ) Glucose 100 mg/dL (65-110) Calcium 9.1 mg/dL (8.4-10.2) Magnesium 1.2 L mg/dL (1.6-2.3) Blood Type B Positive Antibody Screen Negative Crossmatch See Detail 12/31/24 05:47 WBC RBC Hgb 6.9 L* g/dL (12.0-15.0) Hct 20.7 L* % (37.0-47.0) MCV MCH MCHC RDW Plt Count MPV Immature Gran % (Auto) Neut % (Auto) Lymph % (Auto) [place] % (Auto) Eos % (Auto) Baso % (Auto) Lymph # (Auto) [place] # (Auto) Eos # (Auto) Baso # (Auto) Abs Immat Gran (auto) Absolute Neuts (auto) Absolute Nucleated RBC Nucleated RBC % PT INR APTT Fibrinogen D-Dimer Sodium Potassium Chloride Carbon Dioxide Anion Gap BUN Creatinine Estim Creat Clear Calc Estimated GFR Glucose Calcium Magnesium Blood Type Antibody Screen Crossmatch Patient hx anesthesia problems: none Family hx anesthesia problems: none Results Review: All pre-operative results and documents have been reviewed as part of the pre- operative evaluation. [facility] Past Medical History Medical History (Updated 12/31/24 @ 07:33 by Patricio Fernandez MD) Obesity Medical Social History Social History Smoking status: Never smoker Alcohol intake: never Substance use: never Substance use type: does not use Do You Feel Safe in your Home?: Yes Lack of Transportation: No Lack of Food: Never True Current Housing: I Have Housing Concerned About Future Housing: No Difficulty Paying Gas/Electric Bills: No Difficulty Paying for Meds: No Currently Unemployed: No Education: High School Diploma/GED Difficulty w/ Childcare or Family Care: No Spiritual care concerns: No Anes - Eval Final PreProcedure Day of Procedure 12/31/24 07:33 Patient weight: obese Heart: regular rate and rhythm Lungs: clear to auscultation Airway: Mallampati scale class II Neurological: alert and oriented Last oral intake: >/= 8 hours ASA classification: II Emergent: yes Anesthetic plan: proceed Anesthesia type and monitoring: general LMA and standard monitoring Results Review: All pre-operative results and documents have been reviewed as part of the pre- operative evaluation. Informed Consent: The patient's anesthetic plan and its attendant risks and benefits were discussed with the patient/family/POA. Questions were solicited and answers provided to the satisfaction of the patient/family/POA.
--- NOTE | 2024-12-31 07:39 | PM.IMHP ---
H&P: HPI History of Present Illness Date/Time: 12/31/24 07:39 Chief Complaint: Bleeding and pain Narrative: 24 y/o G1 who had a medical termination of , taking medicines on 12/23/24. She was seen yesterday in the ED as a walk in patient with bleeding and cramping, improved after a dose of misoprostol. She returned to the ED later in the day with both symptoms worsening. Her Hgb has dropped from 11.4 to 6.9. Vital signs have been stable and normal. However, she continues to complain that she needs medicine for cramps and is moaning and intermittently writhing. She has had multiple doses of Dilaudid, Fentanyl, morphine and Toradol. We administered 1000 mcg misoprostol last evening, but bleeding has continued. As the covering physician, I was called last evening. I have offered 1 unit PRBC and have advised dilation and suction curettage. Review of Systems Review of Systems: All systems reviewed & are unremarkable except as noted in HPI and below PMFSH Past Medical History Medical History Obesity Medical Social History Social History Smoking status: Never smoker Alcohol intake: never Substance use: never Substance use type: does not use Do You Feel Safe in your Home?: Yes Lack of Transportation: No Lack of Food: Never True Current Housing: I Have Housing Concerned About Future Housing: No Difficulty Paying Gas/Electric Bills: No Difficulty Paying for Meds: No Currently Unemployed: No Education: High School Diploma/GED Difficulty w/ Childcare or Family Care: No Spiritual care concerns: No Meds Home Medications and Allergies Home Medications ?Medication ?Instructions ?Recorded ?Confirmed ?Type No Home Medications 12/29/24 12/31/24 History ferrous sulfate 325 mg (65 mg 325 mg PO BID #60 tabs 12/30/24 Rx iron) tablet (Feosol) Allergies Allergy/AdvReac Type Severity Reaction Status Date / Time No Known Allergies Allergy Verified 12/31/24 00:22 Vital Signs Vital Signs - 24 hr 12/30/24 16:19 12/30/24 17:01 12/30/24 18:09 Temperature 36.5 C Pulse Rate 89 70 67 Respiratory Rate 18 18 18 Blood Pressure 116/75 121/64 122/71 Pulse Oximetry 100 100 100 Oxygen Delivery 12/30/24 21:33 12/30/24 22:00 12/30/24 23:00 Temperature Pulse Rate 74 73 71 Respiratory Rate 17 17 17 Blood Pressure 113/65 114/61 112/61 Pulse Oximetry 100 100 100 Oxygen Delivery 12/30/24 23:17 12/30/24 23:26 12/30/24 23:37 Temperature 36.6 C Pulse Rate 64 Respiratory Rate 17 18 Blood Pressure 116/70 Pulse Oximetry 100 100 Oxygen Delivery 12/30/24 23:38 12/30/24 23:42 12/30/24 23:46 Temperature Pulse Rate 76 86 Respiratory Rate Blood Pressure 112/66 123/71 Pulse Oximetry 100 Oxygen Delivery 12/30/24 23:47 12/30/24 23:52 12/30/24 23:57 Temperature Pulse Rate Respiratory Rate Blood Pressure Pulse Oximetry 100 100 97 Oxygen Delivery 12/31/24 00:01 12/31/24 00:02 12/31/24 00:07 Temperature Pulse Rate 61 Respiratory Rate Blood Pressure 125/64 Pulse Oximetry 100 92 Oxygen Delivery 12/31/24 00:10 12/31/24 00:12 12/31/24 00:17 Temperature Pulse Rate Respiratory Rate Blood Pressure Pulse Oximetry 97 97 Oxygen Delivery Room Air 12/31/24 00:22 12/31/24 00:27 12/31/24 00:32 Temperature Pulse Rate Respiratory Rate Blood Pressure Pulse Oximetry 98 100 98 Oxygen Delivery 12/31/24 00:37 12/31/24 00:42 12/31/24 00:47 Temperature Pulse Rate Respiratory Rate Blood Pressure Pulse Oximetry 100 100 100 Oxygen Delivery 12/31/24 00:52 12/31/24 00:57 12/31/24 01:01 Temperature Pulse Rate 72 Respiratory Rate Blood Pressure 125/61 Pulse Oximetry 98 99 Oxygen Delivery 12/31/24 01:02 12/31/24 01:07 12/31/24 01:12 Temperature Pulse Rate Respiratory Rate Blood Pressure Pulse Oximetry 98 99 98 Oxygen Delivery 12/31/24 01:17 12/31/24 01:17 12/31/24 01:22 Temperature 36.4 C Pulse Rate Respiratory Rate 18 Blood Pressure Pulse Oximetry 100 100 Oxygen Delivery 12/31/24 01:27 12/31/24 01:31 12/31/24 01:37 Temperature Pulse Rate Respiratory Rate Blood Pressure Pulse Oximetry 99 100 100 Oxygen Delivery 12/31/24 01:42 12/31/24 01:46 12/31/24 01:53 Temperature Pulse Rate Respiratory Rate Blood Pressure Pulse Oximetry 98 100 100 Oxygen Delivery 12/31/24 01:53 12/31/24 01:56 12/31/24 01:58 Temperature Pulse Rate 71 Respiratory Rate Blood Pressure 126/62 Pulse Oximetry 100 100 Oxygen Delivery 12/31/24 01:59 12/31/24 02:01 12/31/24 02:03 Temperature Pulse Rate 80 79 Respiratory Rate Blood Pressure 121/60 120/61 Pulse Oximetry 99 Oxygen Delivery 12/31/24 02:08 12/31/24 02:13 12/31/24 02:18 Temperature Pulse Rate Respiratory Rate Blood Pressure Pulse Oximetry 99 100 94 Oxygen Delivery 12/31/24 02:20 12/31/24 02:23 12/31/24 02:28 Temperature Pulse Rate Respiratory Rate 22 H Blood Pressure Pulse Oximetry 100 97 Oxygen Delivery 12/31/24 02:31 12/31/24 02:33 12/31/24 02:38 Temperature Pulse Rate 67 Respiratory Rate Blood Pressure 113/57 L Pulse Oximetry 100 95 Oxygen Delivery 12/31/24 02:43 12/31/24 02:48 12/31/24 02:53 Temperature Pulse Rate Respiratory Rate Blood Pressure Pulse Oximetry 100 100 100 Oxygen Delivery 12/31/24 02:58 12/31/24 03:01 12/31/24 03:03 Temperature 36.9 C Pulse Rate 70 Respiratory Rate 20 Blood Pressure 113/57 L Pulse Oximetry 100 100 Oxygen Delivery 12/31/24 03:08 12/31/24 03:13 12/31/24 03:18 Temperature Pulse Rate Respiratory Rate Blood Pressure Pulse Oximetry 94 97 97 Oxygen Delivery 12/31/24 03:23 12/31/24 03:28 12/31/24 03:31 Temperature Pulse Rate 65 Respiratory Rate Blood Pressure 125/67 Pulse Oximetry 98 98 Oxygen Delivery 12/31/24 03:33 12/31/24 03:38 12/31/24 03:43 Temperature Pulse Rate Respiratory Rate Blood Pressure Pulse Oximetry 98 98 99 Oxygen Delivery 12/31/24 03:48 12/31/24 03:53 12/31/24 03:58 Temperature Pulse Rate Respiratory Rate Blood Pressure Pulse Oximetry 99 99 100 Oxygen Delivery 12/31/24 04:01 12/31/24 04:03 12/31/24 04:08 Temperature Pulse Rate 71 Respiratory Rate Blood Pressure 120/55 L Pulse Oximetry 100 98 Oxygen Delivery 12/31/24 04:13 12/31/24 04:18 12/31/24 04:23 Temperature Pulse Rate Respiratory Rate Blood Pressure Pulse Oximetry 99 100 99 Oxygen Delivery 12/31/24 04:28 12/31/24 04:31 12/31/24 04:33 Temperature Pulse Rate 70 Respiratory Rate Blood Pressure 125/71 Pulse Oximetry 99 99 Oxygen Delivery 12/31/24 04:38 12/31/24 04:43 12/31/24 04:48 Temperature Pulse Rate Respiratory Rate Blood Pressure Pulse Oximetry 99 100 99 Oxygen Delivery 12/31/24 04:53 12/31/24 04:58 12/31/24 05:01 Temperature Pulse Rate 79 Respiratory Rate Blood Pressure 127/68 Pulse Oximetry 100 100 Oxygen Delivery 12/31/24 05:03 12/31/24 05:08 12/31/24 05:13 Temperature Pulse Rate Respiratory Rate Blood Pressure Pulse Oximetry 100 100 100 Oxygen Delivery 12/31/24 05:18 12/31/24 05:23 12/31/24 05:28 Temperature Pulse Rate Respiratory Rate Blood Pressure Pulse Oximetry 100 100 100 Oxygen Delivery 12/31/24 05:31 12/31/24 05:33 12/31/24 05:38 Temperature Pulse Rate 67 Respiratory Rate Blood Pressure 131/69 Pulse Oximetry 100 100 Oxygen Delivery 12/31/24 05:43 12/31/24 05:48 12/31/24 05:53 Temperature Pulse Rate Respiratory Rate Blood Pressure Pulse Oximetry 100 100 99 Oxygen Delivery 12/31/24 05:58 12/31/24 06:01 12/31/24 06:03 Temperature Pulse Rate 74 Respiratory Rate Blood Pressure 128/67 Pulse Oximetry 99 99 Oxygen Delivery 12/31/24 06:08 12/31/24 06:13 12/31/24 06:18 Temperature Pulse Rate Respiratory Rate Blood Pressure Pulse Oximetry 100 100 100 Oxygen Delivery 12/31/24 06:23 12/31/24 06:28 12/31/24 06:31 Temperature Pulse Rate 81 Respiratory Rate Blood Pressure 130/62 Pulse Oximetry 98 99 Oxygen Delivery 12/31/24 06:33 12/31/24 06:38 12/31/24 06:43 Temperature Pulse Rate Respiratory Rate Blood Pressure Pulse Oximetry 100 100 98 Oxygen Delivery 12/31/24 06:48 12/31/24 06:53 12/31/24 06:58 Temperature Pulse Rate Respiratory Rate Blood Pressure Pulse Oximetry 100 100 100 Oxygen Delivery 12/31/24 07:01 12/31/24 07:03 12/31/24 07:08 Temperature Pulse Rate 75 Respiratory Rate Blood Pressure 139/69 Pulse Oximetry 100 96 Oxygen Delivery 12/31/24 07:13 Temperature Pulse Rate Respiratory Rate Blood Pressure Pulse Oximetry 99 Oxygen Delivery Exam Const: Orientation/consciousness: patient oriented x3 Other: Well-developed, well-nourished female in no acute distress. Neck: Thyroid: thyroid normal Lymphatic: no lymphadenopathy noted (in neck, axilla or inguinal nodes) Resp: Effort & Inspection: normal respiratory effort Auscultation: clear to auscultation bilaterally Cardio: Rate: regular rate Rhythm: regular rhythm Heart sounds: S1 normal heart sound present and S2 normal heart sound present GI: Other: ABD: Soft, nondistended. She indicates pain in the lower quadrants. No guarding or rebound tenderness. No hepatosplenomegaly. : Other: Pelvic: Deferred to OR. Back/Spine/Pelvis: Back: no CVA tenderness Skin: General skin exam: normal color and no rashes or lesions noted Neuro: General: patient oriented x3 Extrem: Other: Extremities: nontender with no edema Psych: Mental Status: mental status grossly normal Affect: normal affect H&P: Results Labs Labs: Short CBC 12/30/24 12/30/24 12/30/24 Range/Units 17:00 22:27 22:57 WBC 9.6 6.1 (4.5-10.0) K/mm3 Hgb 9.8 L 8.3 L 7.9 L (12.0-15.0) g/dL Hct 29.9 L 24.6 L 23.1 L (37.0-47.0) % Plt Count 232 218 (150-375) k/mm3 12/31/24 Range/Units 05:47 WBC (4.5-10.0) K/mm3 Hgb 6.9 L* (12.0-15.0) g/dL Hct 20.7 L* (37.0-47.0) % Plt Count (150-375) k/mm3 [facility] 12/30/24 17:00 Sodium 136 L Potassium 3.5 Chloride 103 Carbon Dioxide 23 BUN 6 L Creatinine 0.52 L Glucose 100 Calcium 9.1 Assessment and Plan Assessment and plan (1) Medical : Code(s): Z33.2 - Encounter for elective termination of Status: Acute Assessment and Plan: A: Pain and bleeding after termination of . P: Offered dilation and suction curettage. She understands risks of surgery to include risks of anesthesia, risks of pain, infection, bleeding, blood products, thromboembolic phenomena and damage to adjacent structures such as bowel, bladder, ureters, blood vessels and nerves. She understands all these risks and elects to proceed with surgery. (2) Vaginal bleeding: Code(s): N93.9 - Abnormal uterine and vaginal bleeding, unspecified Status: Acute
--- NOTE | 2024-12-31 07:47 | WPDHPUPDATE1 ---
History and Physical Update Update Date/Time: 12/31/24 07:47 History and Physical has been reviewed, including an updated exam of the patient. There are NO changes in the patient's condition. Risks, benefits, and alternatives have been discussed and questions answered. Patient agrees to proceed with procedure.
--- NOTE | 2024-12-31 08:14 | W.PM.PROC2 ---
Procedure Note - Detailed Date of Procedure 12/31/24 Pre-op Diagnosis Vaginal bleeding Pain Incomplete medical Post-op Diagnosis Same Procedure Performed Dilation and suction curettage Surgeon Xavier Cotto MD Anesthesia MAC and Local (1% lidocaine) Findings Clotted blood and products of conception. Description of Procedure The patient was taken to the operating room where she was prepared and draped in the usual sterile fashion in the dorsal lithotomy position. The bladder was drained with a red rubber catheter. A sterile speculum was placed into the vagina. The anterior lip of the cervix was grasped with a single-tooth tenaculum. Ten mL of 1% lidocaine was administered in a paracervical block. A large clot was noted in the cervical canal, and the cervix did not require any dilation. The 8mm curved tip suction curette was advanced. Suction curettage was performed and products of conception were aspirated. Sharp curettage was then performed until a good uterine cry was noted. A final pass with the suction curette was made. The tenaculum was removed. Hemostasis was excellent. Sponge, lap, needle and instrument counts were correct. The patient was taken to the recovery room in stable condition. I was present and scrubbed for the entire procedure. Estimated Blood Loss 200 Urine Output 150 Drains No Packing No Pathology Yes (Endometrial curettings) Complications None Condition Stable Disposition PACU
[2024-12-31] MEDS: LIDOCAINE 1% LOCAL INJ 10 ML VIAL 20 ML INFILTRATE (08:17)
[2024-12-31] MEDS: SODIUM CHLORIDE 0.9% IV 250 ML 30 ML IV CONT (09:14)
--- NOTE | 2024-12-31 09:45 | PC.NURSE ---
Pt needed to void upon arrival. She also ate a saltine cracker and drank some juice. Discussed plan to obtain H&H around 1200.
[2024-12-31 12:02] LABS: Hematocrit 22.5 % (37.0-47.0); Hemoglobin 7.9 g/dL (12.0-15.0)
--- NOTE | 2025-01-09 08:44 | PM.DS ---
DS: Admitting Diagnosis Discharge Date 12/31/24 Admitting Diagnosis Incomplete DS: Discharge Diagnosis Discharge Diagnosis (1) Incomplete : Code(s): O03.4 - Incomplete spontaneous without complication Status: Acute DS: Summary Hospital Course Hospital Course: She was admitted with vaginal bleeding and pain. Received 1 unit PRBC and underwent suction D&C. She did well and was able to go home on POD#0. Time Spent with Patient Time attestation: Total time spent providing and/or coordinating discharge services: DS: Data Data Completed and Pending Completed studies during hospitalization: Pending at discharge 12/31/24 08:18 Surgical [PTH] Routine Discharge Plan Discharge Attending physician on discharge: Xavier Cotto Consulting providers: Julien Hillman; Patricio Fernandez; Krystian Pena; Donell Balderrama Discharging Clinician: Xavier Cotto Patient Disposition: Home Activity: pelvic rest Diet: regular Discharge Instructions: Nothing in the vagina for 2 weeks. Call or return if temperature above 100.4? F, increased abdominal pain, increased vaginal bleeding or any new problems. Patient Language: Qatari Stand Alone Forms: General Discharge Information Follow-up/Referrals: Xavier Cotto MD [Physician] - 2 Weeks Discharge Medications: New ibuprofen 600 mg tablet 600 mg PO Q6H PRN (Reason: cramps) Qty: 30 0RF hydrocodone-acetaminophen 5-325 mg tablet 1 - 2 tablet PO Q6H PRN (Reason: pain) Qty: 30 0RF Continued ferrous sulfate [Feosol] 325 mg (65 mg iron) tablet 325 mg PO BID Qty: 60 1RF Date of admission: 12/30/24 22:29 Primary Care Provider: PHYSICIAN,PRODUCT MARKETER Admitting Provider: Xavier Cotto Attending physician on admission: Xavier Cotto Condition: Stable
== END 2024-12-31 13:20 | disposition home or self-care (01) ==
LOC: ANHED 22:43 → ANHLDR 23:07
PROVIDERS: Emergency Medicine; Admitting Provider Obstetrics & Gynecology; Emergency Provider Family Medicine; Visit Provider Obstetrics & Gynecology
PROC: (CPT 59812; principal; 2024-12-31 07:30)
DX: O03.1 Delayed or excessive hemorrhage following incomplete spontaneous abortion (principal)
CPT/HCPCS: 59812; 36415; 36430; 76801; 80048; 80053; 81001; 83735; 84702; 85014; 85018; 85025; 85027; 85380; 85384; 85461; 85610; 85730; 86850; 86900; 86901; 86923; 87086; 88305; 96361; 96374; 96375; 96376; 99285; A9270; G0378; J1100; J1171; J1885; J2003; J2250; J2270; J2405; J2704; J3010; J7030; J7050; J7120; P9016